=== PATIENT | female | born 1960 | race Caucasian/White ===

== ENCOUNTER → 2016-08-04 | Outpatient (CLI) | payer OTHER ==
--- NOTE | 2016-08-13 11:25 | MM ---
Reason for exam: screening (asymptomatic). Last mammogram was performed 10 years and 4 months ago. History: Family history of breast cancer in sister at age 50. Physical Findings: A clinical breast exam by your physician is recommended on an annual basis and results should be correlated with mammographic findings. MG Screening Mammo w CAD Bilateral CC and MLO view(s) were taken. Prior study comparison: May 18, 2008, mammogram, performed at [facility]. April 12, 2006, bilateral [place] screening mammogram, performed at [facility]. The breast tissue is almost entirely fat. No significant changes when compared with prior studies. ASSESSMENT: Benign, BI-RAD 2 RECOMMENDATION: Routine screening mammogram of both breasts in 1 year.
--- NOTE | 2016-09-03 13:41 | US ---
EXAMINATION TYPE: US transvaginal DATE OF EXAM: 08/04/2016 9:45 AM COMPARISON: Previous pelvic ultrasound 18 June 2016 CLINICAL HISTORY: N83.201 Rt Ov.cyst. TECHNIQUE: Transvaginal (TV) Date of LMP: post menopausal patient EXAM MEASUREMENTS: Uterus: 8.3 x 4.7 x 4.8 cm Endometrial Stripe: 0.9 cm Right Ovary: cyst in right adnexa measuring 8.6 x 8.1 x 7.6cm Left Ovary: not visualized patient of large body habitus, uterus somewhat displaced due to large cyst 1. Uterus: Anteverted, somewhat displaced with limited visualization due to large right adnexal cyst 2. Endometrium: somewhat thickened, but limited visualization 3. Right Ovary: cystic structure in right adnexa, unable to see ovarian tissue 4. Left Ovary: not visualized. 5. Bilateral Adnexa: right adnexal cyst 6. Posterior cul-de-sac: wnl IMPRESSION: Large right adnexal cyst is again seen similar dimensions. Uterus is poorly defined. Ther e are nabothian cysts present. Exam is limited.
== END | disposition home or self-care (01) ==
LOC: RADMAMWWP 09:10
PROVIDERS: ATTEND Obstetrics & Gynecology
DX: Z12.31 Encounter for screening mammogram for malignant neoplasm of breast (principal); N83.201 Unspecified ovarian cyst, right side; Z80.3 Family history of malignant neoplasm of breast
CPT/HCPCS: 76830; G0202

== ENCOUNTER 2016-08-24 10:34 | Day surgery (SDC) | payer OTHER ==
[2016-08-20 13:44] VITALS: BMI 37.3
[~2016-08-24 10:34] MED LIST: HYDROmorphone 1 MG/ML 1 ML SYRINGE IVP PRN; LACTATED RINGERS 1,000 ML IV SCH; MIDAZOLAM 2 MG/2 ML VIAL IV PRN; ONDANSETRON 4 MG/2 ML VIAL IVP ONE; Pre Op ABX Message 1 EACH MISC MISCELLANE ONE; SCOPOLAMINE 1.5MG/72HR PATCH TRANSDERM ONE
[2016-08-24 11:26] LABS: Glucose,Whole Blood 142 mg/dL (75-99)
[2016-08-24] MEDS ORDERED: PROPOFOL 10 MG/ML 20 ML VIAL IV ONE (12:11)
[2016-08-24] MEDS ORDERED: ROPIVACAINE 5 MG/ML 30 ML VIAL ONE (12:11)
[2016-08-24] MEDS ORDERED: SUCCINYLCHOLINE CHLORIDE 100 MG/5 ML SYR IV ONE (12:11)
[2016-08-24] MEDS ORDERED: LIDOCAINE 2% INJ 20 MG/ML (20 ML MDV) ONE (12:11)
[2016-08-24] MEDS ORDERED: fentaNYL (PF) 50 MCG/ML 2 ML AMP ONE (12:11)
[2016-08-24] MEDS ORDERED: LACTATED RINGERS 1,000 ML IV ONE (12:11)
[2016-08-24] MEDS ORDERED: LIDOCAINE 1% INJ 10MG/ML (20 ML MDV) ONE (12:11)
[2016-08-24 13:28] VITALS: TEMP 97.6
[2016-08-24 13:44] LABS: Glucose,Whole Blood 139 mg/dL (75-99)
[2016-08-24 14:42] VITALS: BP 109/77; PULSE 82; RESP 16
--- NOTE | 2016-08-24 22:11 | OP ---
DATE OF SERVICE: 08/24/2016 SURGEON: MISTY HOOVER DO HOTEL MAINTENANCE WORKER: Debi Dominguez PA-C PREOPERATIVE DIAGNOSES: 1. Basal joint arthritis, left thumb. 2. Left carpal tunnel syndrome. POSTOPERATIVE DIAGNOSES: 1. Basal joint arthritis, left thumb. 2. Left carpal tunnel syndrome. PROCEDURES: 1. Excision of trapezium with ligament reconstruction, tendon interposition arthroplasty using the flexor carpi radialis tendon. 2. Left carpal tunnel release. ANESTHESIA: ESTIMATED BLOOD LOSS: SPECIMENS REMOVED: COMPLICATIONS: PROCEDURE: The patient was taken to the operative suite after an axillary block was performed by the department of anesthesia in the holding area with good results. The involved arm was prepped and draped in the usual manner, elevated, exsanguinated and blood pressure tourniquet inflated to 250 mmHg. A volar incision was made over the palm of the hand using a Bravo approach. The dissection was taken through the subcutaneous tissue bluntly to identify and to preserve sensory branches. The flexor carpi radialis tendon was initially identified and kept in view throughout the remainder of the procedure. The thenar muscles were then gently dissected off of the volar capsule and reflected ulnarly and distally. Longitudinal arthrotomy was then made into the trapezial metacarpal and scaphotrapezial joints. The trapezium was dissected sharply with a little traction on the thumb and care again, given to monitoring the position of the flexor carpi radialis. The trapezium was osteotomized and removed in piecemeal fashion using rongeur. Again, the flexor carpi radialis tendon was kept intact so as not to be harmed during this portion of the procedure. A drill hole was then made into the base of the first metacarpal, beginning with an awl and enlarged using drill bits and a large curette. A similar hole was drilled on the dorsal aspect of the base of the first metacarpal perpendicular to the plane of the nail bed. Attention was then turned to harvesting the flexor carpi radialis. Approximately 8 to 10 cm proximal to the wrist, small transverse incision was made and blunt dissection was taken through the subcutaneous tissue. The flexor carpi radialis tendon was identified and released to this level. It was retracted into the wrist wound with a gentle tug. A suspension sling arthroplasty was then performed along with ligament reconstruction of the deep volar ligament using the flexor carpi radialis tendon. The edge of the tendon was secured with suture. The suture was then passed into the base of the first metacarpal and brought out through the dorsal drill hole and brought back down upon itself and abductor pollicis longus tendons. It was secured in place with 3-0 PDS suture. It was then brought back around itself, back through the abductor pollicis longus tendons, and back down upon itself again and further secured with 3-0 PDS suture. Again, in this manner reconstruction of the deep volar ligament was accomplished as well as a suspension sling arthroplasty and natural tendon spacer for the joint. Next, a longitudinal incision was made along the ring finger ray distal to the wrist crease. Dissection was taken through the skin and subcutaneous tissue, initially sharp through the skin and then blunt through the subcutaneous tissue to ensure protection of any potential terminal transverse branches of the palmar cutaneous nerve. The palmar fascia was then incised under direct vision longitudinally exposing the transverse carpal ligament. The transverse carpal ligament also was incised under direct visualization. The median nerve was then reflected free of tenosynovium to ensure no adhesions. At this point, a slight hour glass constriction was noted of the median nerve beneath the transverse carpal ligament. Both wounds were again irrigated and were closed with running and interrupted 5-0 nylon suture. A soft bulky dressing was then applied including the volar plaster splint, immobilizing the wrist in neutral position and a thumb spica splint to the IP joint, immobilizing the thumb. The patient was then taken to the recovery room in satisfactory condition.
== END 2016-08-24 15:05 | disposition home or self-care (01) ==
LOC: OR 10:34
PROVIDERS: ATTEND Orthopaedic Surgery Hand Surgery
DX: M18.9 Osteoarthritis of first carpometacarpal joint, unspecified (principal); G56.02 Carpal tunnel syndrome, left upper limb; I10 Essential (primary) hypertension; E07.9 Disorder of thyroid, unspecified; Z86.73 Personal history of transient ischemic attack (TIA), and cerebral infarction without residual deficits; Z79.84 Long term (current) use of oral hypoglycemic drugs; Z79.1 Long term (current) use of non-steroidal anti-inflammatories (NSAID); Z79.899 Other long term (current) drug therapy; Z88.2 Allergy status to sulfonamides
CPT/HCPCS: 25447; 25312; 64721; J2001 ×2; J2250; J2405; J3010; J2795; J0330; J2704

== ENCOUNTER → 2016-10-09 | Day surgery (SDC) | payer OTHER ==
[2016-10-07 14:49] VITALS: BMI 39.2
[~2016-10-09] MED LIST changes: +ALPRAZolam 0.25 MG TAB PO PRN; +ASPIRIN 325 MG TAB PO ONE; +CLONIDINE HCL 0.15 MG PO SCH; +HEPARIN SODIUM 1,000 UN/ML (10ML VL) IV ONE; +HEPARIN SODIUM 1,000 UN/ML (10ML VL) ONE; +HYDROCHLOROTHIAZIDE 25 MG TAB PO SCH; +HYDROcodone/APAP 10-325MG 1 EACH TAB PO PRN; -HYDROmorphone 1 MG/ML 1 ML SYRINGE IVP PRN; +IOHEXOL 350 MG/ML 125ML BOTTLE INJ ONE; -LACTATED RINGERS 1,000 ML IV SCH; +LIDOCAINE 2% INJ 20 MG/ML (20 ML MDV) ONE; +LIDOCAINE 2% INJ 20 MG/ML SQ ONE; +MIDAZOLAM 2 MG/2 ML VIAL IV ONE; -MIDAZOLAM 2 MG/2 ML VIAL IV PRN; +MIDAZOLAM 2 MG/2 ML VIAL ONE; +NON-FORMULARY DRUG (Metoprolol Tartrate [Lopressor] 100 MG) PO SCH; +NON-FORMULARY DRUG (Simvastatin [Zocor] 20 MG) PO SCH; -ONDANSETRON 4 MG/2 ML VIAL IVP ONE; +PANTOPRAZOLE 40 MG TABLET PO PRN; -Pre Op ABX Message 1 EACH MISC MISCELLANE ONE; +RX INFO: IV CONTRAST WAS GIVEN 1 EACH MISC MISCELLANE PRN; -SCOPOLAMINE 1.5MG/72HR PATCH TRANSDERM ONE; +SODIUM CHLORIDE 0.9% 1,000 ML IV SCH; +SODIUM CHLORIDE 0.9% 1,000 ML in EMPTY BAG 1 BAG IV ONE; +VENLAFAXINE HCL ER 150 MG CAP PO SCH; +VERAPAMIL 2.5 MG/ML 2 ML AMP ONE; +VERAPAMIL SYRINGE (5 MG/10 ML) INTRAARTER ONE; +diphenhydrAMINE 50 MG/ML 1 ML VIAL IVP ONE; +diphenhydrAMINE 50 MG/ML 1 ML VIAL ONE; +fentaNYL (PF) 50 MCG/ML 2 ML AMP IV ONE; +fentaNYL (PF) 50 MCG/ML 2 ML AMP ONE
[2016-10-09 07:04] LABS: Basophils % (A) 1 %; CH 30.7; CHCM 34.5; Eosinophils # (A) 0.1 k/uL (0-0.7); Eosinophils % (A) 1 %; HCT 39.9 % (34.0-46.0); HDW 2.77; HGB 13.8 gm/dL (11.4-16.0); Luc # (Auto) 0.21; Luc % (Auto) 3; Lymphocytes # (A) 2.4 k/uL (1.0-4.8); Lymphocytes % (A) 31 %; MCH 30.9 pg (25.0-35.0); MCHC 34.6 g/dL (31.0-37.0); MCV 89.4 fL (80.0-100.0); Mean Platelet Volume 6.5; Monocytes # (A) 0.4 k/uL (0-1.0); Monocytes % (A) 6 %; Neutrophils # (A) 4.5 k/uL (1.3-7.7); Neutrophils % (A) 59 %; RBC 4.46 m/uL (3.80-5.40); RDW 13.4 % (11.5-15.5); WBC 7.7 k/uL (3.8-10.6); WBC (Perox) 8.22
[2016-10-09 07:07] VITALS: PULSE 73; TEMP 98.1
[2016-10-09 07:21] LABS: Anion Gap 10 mmol/L; Blood Urea Nitrogen 19 mg/dL (7-17); Calcium 9.3 mg/dL (8.4-10.2); Carbon Dioxide 28 mmol/L (22-30); Chloride 103 mmol/L (98-107); Glucose 163 mg/dL (74-99); Non-African American GFR(MDRD) >60 (>60 ml/min/1.73 sqM); Potassium 3.8 mmol/L (3.5-5.1); Sodium 141 mmol/L (137-145)
[2016-10-09 09:12] VITALS: RESP 20
[2016-10-09 12:14] LABS: Glucose,Whole Blood 108 mg/dL (75-99)
--- NOTE | 2016-10-09 13:55 | CC ---
Mrs. Laird is a 56 year old female with a history of hypertension, hyperlipidemia, diabetes mellitus, and a family history of premature coronary artery disease who had frequent ventricular ectopic activity and is scheduled to undergo a surgery. She underwent myocardial perfusion imaging that revealed partial reversible anterolateral wall defect. In view of that and her risk factors, recommendation was made regarding cardiac catheterization. The procedure as well as risks and complications were discussed with the patient who is in full understanding and agreement. PROCEDURE: The patient was brought to the laboratory engineer in a fasting semi-sedated state. After receiving Fentanyl and Benadryl, achieving moderate conscious sedated state, using Xylocaine anesthesia and Seldinger technique, a 6 Czech sheath was introduced into the right radial artery . Selective right and left coronary artery was performed using 5 Czech 3.5 Bend, right and left Vijay catheter. Multiple views of the right coronary artery including hemiaxial views were obtained. Following that, the 5 Czech tight pigtail catheter was introduced into the left ventricle and a 30 degree GOODEN view of the left ventricle was obtained. . Following that, catheter and sheath were removed. Hemostasis was obtained with deployment of a TR band. There were no immediate complications. The patient was returned to her room in stable condition. Of note, the patient received 5000 units of intravenous heparin as well as intra- arterial verapamil. FINDINGS: LEFT MAIN: This is a large size vessel bifurcating into left circumflex, left anterior descending artery. Left main coronary artery has no evidence of obstructive coronary artery disease. LEFT ANTERIOR DESCENDING ARTERY: This is a large size vessel reaching towards the apex with a wrap around the apex segment giving rise to a small diagonal branch in the mid segment. The left anterior descending artery as well as branches have no evidence of obstructive coronary artery disease. LEFT CIRCUMFLEX: This is a nondominant vessel, large vessel, giving rise to two large obtuse marginal branches. The left circumflex as well as branches have no evidence of obstructive coronary artery disease. RIGHT CORONARY ARTERY: This is a large dominant vessel, giving rise to PDA and a PLV. The right coronary artery and its branches have no evidence of obstructive coronary artery disease. LEFT VENTRICULOGRAM: Left ventriculogram was performed in 30 degree JOCELYN view and received normal left ventricular size and systolic function. Ejection fraction 55%. There was no evidence of significant mitral regurgitation. HEMODYNAMICS: There was no gradient across the aortic valve. The left ventricular end diastolic pressure was 16 mmHg. CONCLUSION: 1. Normal coronary arteries. 2. Normal left ventricular size and systolic function. RECOMMENDATIONS: In view of findings and anatomy, I have recommended to continue with medical therapy with aggressive coronary risk factor modifications that have been initiated. Those findings and recommendations were discussed with the patient and her family who are in full understanding and agreement. Duration of procedure: 23 minutes. MTDD
--- NOTE | 2016-10-09 13:59 | MISC ---
Dear Dr. Ayala: I had the pleasure of performing cardiac catheterization on Mrs. Laird on the september and a full copy of procedure note will be forwarded to you. In brief, she was found to have no evidence of significant obstructive coronary artery disease with preserved left ventricular size and systolic function. Based on those findings, I see no contraindication to her upcoming surgical intervention. Thank you again for allowing me to participate in this patients care. Please feel free to call for any questions. Sincerely yours, SELENA
[2016-10-09 14:11] VITALS: BP 118/64
== END | disposition home or self-care (01) ==
LOC: CATHCVL 06:27
PROVIDERS: ATTEND Internal Medicine Interventional Cardiology
DX: Z01.810 Encounter for preprocedural cardiovascular examination (principal); R94.39 Abnormal result of other cardiovascular function study; I10 Essential (primary) hypertension; I49.3 Ventricular premature depolarization; K21.9 Gastro-esophageal reflux disease without esophagitis; E78.2 Mixed hyperlipidemia; E11.9 Type 2 diabetes mellitus without complications; Z79.84 Long term (current) use of oral hypoglycemic drugs; Z82.49 Family history of ischemic heart disease and other diseases of the circulatory system; Z79.899 Other long term (current) drug therapy; Z88.2 Allergy status to sulfonamides; Z88.8 Allergy status to other drugs, medicaments and biological substances
CPT/HCPCS: 93458; 80048; 85025; C1894; C1769; J2001; J2250; J1200; J3010; J1644; Q9967

== ENCOUNTER → 2016-12-28 | Outpatient (CLI) | payer OTHER ==
--- NOTE | 2016-12-28 10:01 | US ---
EXAMINATION TYPE: US venous doppler duplex UE RT DATE OF EXAM: 12/28/2016 COMPARISON: NONE CLINICAL HISTORY: R22.31 Localized Swelling, Mass And Lump Right Up. IV site 7 weeks ago in right for earm that is surface grinder tender and swollen SIDE PERFORMED: Right Grayscale, color doppler, spectral doppler imaging performed of the deep veins of the upper extremiti es. There is normal flow, compressibility and vascular waveforms Right Arm: Appears to be negative for DVT but superficial thrombus within basilic vein in forearm at site of patients complaint. Basilic was non compressible with no flow seen at forearm. IMPRESSION: 1. Superficial venous thrombosis within the basilic vein at the site of the patient's pain. 2. No evidence of deep venous thrombosis within the right upper extremity.
== END | disposition home or self-care (01) ==
LOC: RADUSWWP 07:23
PROVIDERS: ATTEND Family Medicine
DX: I82.811 Embolism and thrombosis of superficial veins of right lower extremity (principal)

== ENCOUNTER 2017-04-08 07:37 | Day surgery (SDC) | payer OTHER ==
[2017-04-06 13:08] VITALS: BMI 38.7
[~2017-04-08 07:37] MED LIST changes: -ALPRAZolam 0.25 MG TAB PO PRN; -ASPIRIN 325 MG TAB PO ONE; -CLONIDINE HCL 0.15 MG PO SCH; -HEPARIN SODIUM 1,000 UN/ML (10ML VL) IV ONE; -HEPARIN SODIUM 1,000 UN/ML (10ML VL) ONE; -HYDROCHLOROTHIAZIDE 25 MG TAB PO SCH; -HYDROcodone/APAP 10-325MG 1 EACH TAB PO PRN; -IOHEXOL 350 MG/ML 125ML BOTTLE INJ ONE; +LACTATED RINGERS 1,000 ML IV SCH; +LIDOCAINE 1% 20 ML VIAL (10MG/ML) FOR IV START INTRADERMA PRN; -LIDOCAINE 2% INJ 20 MG/ML (20 ML MDV) ONE; -LIDOCAINE 2% INJ 20 MG/ML SQ ONE; -MIDAZOLAM 2 MG/2 ML VIAL IV ONE; -MIDAZOLAM 2 MG/2 ML VIAL ONE; -NON-FORMULARY DRUG (Metoprolol Tartrate [Lopressor] 100 MG) PO SCH; -NON-FORMULARY DRUG (Simvastatin [Zocor] 20 MG) PO SCH; -PANTOPRAZOLE 40 MG TABLET PO PRN; -RX INFO: IV CONTRAST WAS GIVEN 1 EACH MISC MISCELLANE PRN; -SODIUM CHLORIDE 0.9% 1,000 ML IV SCH; -SODIUM CHLORIDE 0.9% 1,000 ML in EMPTY BAG 1 BAG IV ONE; -VENLAFAXINE HCL ER 150 MG CAP PO SCH; -VERAPAMIL 2.5 MG/ML 2 ML AMP ONE; -VERAPAMIL SYRINGE (5 MG/10 ML) INTRAARTER ONE; -diphenhydrAMINE 50 MG/ML 1 ML VIAL IVP ONE; -diphenhydrAMINE 50 MG/ML 1 ML VIAL ONE; -fentaNYL (PF) 50 MCG/ML 2 ML AMP IV ONE; -fentaNYL (PF) 50 MCG/ML 2 ML AMP ONE
[2017-04-08 07:58] VITALS: RESP 18; TEMP 97.1
[2017-04-08 08:03] LABS: Glucose,Whole Blood 145 mg/dL (75-99)
[2017-04-08] MEDS ORDERED: LACTATED RINGERS 1,000 ML IV ONE (08:03)
[2017-04-08] MEDS ORDERED: PROPOFOL 10 MG/ML 20 ML VIAL IV ONE (08:43)
--- NOTE | 2017-04-08 09:27 | P.PCN ---
Date of Procedure: 04/08/17 Procedure(s) Performed: Procedure: Total colonoscopy. Preoperative diagnosis: Screening for neoplasia. Postoperative diagnosis: Mild sigmoid diverticulosis with no evidence of acute diverticulitis, strictures, polyps or cancer. Preparation: HalfLytely prep. Sedation: Was provided by anesthesia. Brief clinical history: The patient is a 56-year-old female who is referred for this evaluation for screening for neoplasia. There is family history of colon cancer in her mother. The patient had a prior examination in 2010 at the time when she was having a diuretic illness with bleeding that she refers to as food poisoning. She continues to have nonspecific abdominal symptoms and intermittent diarrhea but no bleeding or other alarm symptoms. Procedure: With the patient on her left lateral decubitus position and after informed consent and adequate sedation, the perianal area was inspected and it did not show any fissures or fistulas. There were no masses felt on digital rectal examination. The Olympus CFH 190L videocolonoscope was then inserted in the rectum in the usual fashion and advanced to the cecum. The mucosa appeared healthy. No polyps or tumors were seen. There was occasional small diverticular orifice seen scattered in the distal sigmoid with no evidence of acute diverticulitis or strictures. I retroflexed the endoscope in the rectum before thew endoscope was withdrawn. The patient tolerated the procedure well. Plan: The patient was reassured. Discussed dietary measures. She will follow- up with you as planned and I recommended repeat exam in 5 years.
[2017-04-08 09:34] VITALS: BP 109/59; PULSE 64
== END 2017-04-08 10:06 | disposition home or self-care (01) ==
LOC: ORWHC2ENDO 07:37
DX: K57.30 Diverticulosis of large intestine without perforation or abscess without bleeding (principal); Z80.0 Family history of malignant neoplasm of digestive organs; K21.9 Gastro-esophageal reflux disease without esophagitis; I10 Essential (primary) hypertension; E11.9 Type 2 diabetes mellitus without complications; Z79.84 Long term (current) use of oral hypoglycemic drugs; Z79.891 Long term (current) use of opiate analgesic; Z79.899 Other long term (current) drug therapy; M19.90 Unspecified osteoarthritis, unspecified site; K58.0 Irritable bowel syndrome with diarrhea; E78.5 Hyperlipidemia, unspecified; Z88.2 Allergy status to sulfonamides; Z88.8 Allergy status to other drugs, medicaments and biological substances
CPT/HCPCS: 45378; J2704

== ENCOUNTER 2017-12-31 11:16 | Emergency (ER) | payer MEDICARE, OTHER ==
[2017-12-31 11:45] VITALS: BP 127/72; PULSE 72; RESP 18; TEMP 97.9
--- NOTE | 2017-12-31 12:28 | XR ---
EXAMINATION TYPE: XR knee complete RT DATE OF EXAM: 12/31/2017 CLINICAL HISTORY: Posttraumatic right knee pain TECHNIQUE: Three views of the right knee are obtained. COMPARISON: None. FINDINGS: There is no acute fracture/dislocation evident in right knee. The tri-compartment joint s paces appear within normal limits. The overlying soft tissue appears unremarkable. IMPRESSION: There is no acute fracture or dislocation in the right knee.
--- NOTE | 2017-12-31 12:29 | XR ---
EXAMINATION TYPE: XR ankle complete RT DATE OF EXAM: 12/31/2017 CLINICAL HISTORY: Posttraumatic right ankle pain TECHNIQUE: Frontal, lateral and oblique images of the right ankle are obtained. COMPARISON: None. FINDINGS: There is no acute fracture/dislocation evident in the right ankle. The ankle mortise appe ars within normal limits. Mild soft tissue swelling over the lateral malleolus. Moderate infracalcane al heel spur. IMPRESSION: Moderate soft tissue swelling over the lateral malleolus with no acute fracture or disloc ation in the right ankle.
--- NOTE | 2017-12-31 12:32 | ED ---
Lower Extremity Injury HPI - General Chief Complaint: Extremity Injury, Lower Stated Complaint: Fall-Ankle Pain Time Seen by Provider: 12/31/17 11:58 Source: patient Mode of arrival: ambulatory Limitations: no limitations - History of Present Illness Initial Comments: 57-year-old female past medical history of hypertension type 2 diabetes as well as repetitive right ankle's brains presented today for chief complaint right ankle pain. Patient states that 2 nights ago she was walking in her home when she stepped on a hiking boot rolling her right ankle. Patient states that she noticed a aching pain in the right ankle that increased with ambulation for the past two days. Patient denies numbness, tingling, loss sensation, coolness of the extremity, gross deformity of the ankle. Pt did admit to swelling of the right ankle and right knee pain in addition to the right ankle pain. Pt denies falling hitting her head or injury to any other extremity. Remainder of ROS (-) . Pt has been taking ibuprofen 800mg for pain mgmt, as well as icing the area. Pt presents today for persistent pain. Patient denies any recent fever, chills, shortness of breath, chest pain, back pain, abdominal pain, nausea or vomiting, numbness or tingling, dysuria or hematuria, constipation or diarrhea, headaches or visual changes, or any other complaints. - Related Data Home Medications Medication Instructions Recorded Confirmed Hydrochlorothiazide 25 mg PO DAILY 08/20/16 12/31/17 Metoprolol Tartrate [Lopressor] 100 mg PO BID 08/20/16 12/31/17 Simvastatin [Zocor] 20 mg PO HS 08/20/16 12/31/17 Venlafaxine HCl [Effexor XR] 150 mg PO QAM 08/20/16 12/31/17 cloNIDine HCL [Catapres] 0.3 mg PO BID 08/20/16 12/31/17 Ergocalciferol (Vitamin D2) 50,000 unit PO TU 12/31/17 12/31/17 [Drisdol] Ibuprofen [Motrin] 800 mg PO BID 12/31/17 12/31/17 metFORMIN HCL [Glucophage] 500 mg PO BID 12/31/17 12/31/17 Allergies Allergy/AdvReac Type Severity Reaction Status Date / Time cortisone Allergy Severe Dyspnea, Verified 12/31/17 12:50 Swelling, Red Skin prednisone Allergy Severe Rash, Verified 12/31/17 12:50 Swelling, Dyspnea, Red skin Sulfa (Sulfonamide Allergy Unknown Rash/Hives Verified 12/31/17 12:50 Antibiotics) Review of Systems ROS Statement: Those systems with pertinent positive or pertinent negative responses have been documented in the HPI. ROS Other: All systems not noted in ROS Statement are negative. Constitutional: Denies: fever, chills Eyes: Denies: eye pain ENT: Denies: ear pain, throat pain Respiratory: Denies: cough, dyspnea, wheezes, hemoptysis, stridor Cardiovascular: Denies: chest pain, palpitations Endocrine: Denies: fatigue Gastrointestinal: Denies: abdominal pain, nausea, vomiting, diarrhea, constipation Genitourinary: Denies: urgency, dysuria Musculoskeletal: Reports: joint swelling, arthralgia Skin: Denies: rash, lesions Neurological: Denies: headache, weakness, numbness, paresthesias, confusion Past Medical History Past Medical History: Diabetes Mellitus, GERD/Reflux, Hyperlipidemia, Hypertension, Osteoarthritis (OA) Additional Past Medical History / Comment(s): IBS, palpitations, irregular heartbeat,hx. fx. vertebrae-back & right hip pain,states "superficial blood clot rt arm after IV insertion " History of Any Multi-Drug Resistant Organisms: None Reported Past Surgical History: Joint Replacement, Orthopedic Surgery, Tubal Ligation Additional Past Surgical History / Comment(s): left hip replaced, elbow surg, ovarian cyst w/ rt ovary and rt fallopian tube removed,left carpel tunnel and basal jt Past Anesthesia/Blood Transfusion Reactions: No Reported Reaction Past Psychological History: Anxiety, Depression Smoking Status: Never smoker Past Alcohol Use History: None Reported Past Drug Use History: None Reported - Past Family History Mother Family Medical History: Cancer Additional Family Medical History / Comment(s): COLON CANCER Father Family Medical History: Cancer Additional Family Medical History / Comment(s): ESOPHAGEAL CANCER Sister(s) Family Medical History: Cancer Additional Family Medical History / Comment(s): BREAST CANCER General Exam - General Exam Comments Initial Comments: General: The patient is awake and alert, in no distress, and does not appear acutely ill. Eye: Pupils are equal, round and reactive to light, extra-ocular movements are intact. No nystagmus. There is normal conjunctiva bilaterally. No signs of icterus. Cardiovascular: There is a regular rate and rhythm. No murmur, rub or gallop is appreciated. Respiratory: Lungs are clear to auscultation, respirations are non-labored, breath sounds are equal. No wheezes, stridor, rales, or rhonchi. Musculoskeletal: Moderate soft tissue swelling over the lateral malleolus. Full ROM of the knees with flexion and extension. Pt complains of discomfort with all movement. No palpable step off. Extensor mechanism intact. Normal ROM at the ankles bilaterally with dorsiflexion and plantarflexion, patient complains of pain with bowel movements of the right ankle, tenderness to palpation over the right medial and lateral malleolus. Strength 5/5. Sensation intact. DP pulses equal bilaterally 2+. Compartments soft and compressible. Neurological: A&O x 3. CN II-XII intact, There are no obvious motor or sensory deficits. Coordination appears grossly intact. Speech is normal. Skin: Skin is warm and dry and no rashes or lesions are noted. Psychiatric: Cooperative, appropriate mood & affect, normal judgment. Limitations: no limitations Course Vital Signs 12/31/17 11:41 Temperature 97.9 F Pulse Rate 72 Respiratory 18 Rate Blood Pressure 127/72 O2 Sat by Pulse 98 Oximetry Medical Decision Making - Medical Decision Making X-ray negative. Patient neurovascular intact. Carotid soft and compressible. At this time given soft tissue swelling and have concern for possible ligamentous injury of the right ankle. Posterior mold with stirrups was placed. Patient was given instruction to use crutches at home and follow-up with orthopedic surgery, one to 2 days. Patient agreed plan. In addition patient was given [place] instruction. Case discussed in detail Dr. Alexander, who agreed impression and plan. Patient was discharged in stable condition. Disposition Clinical Impression: Moderate right ankle sprain, Right knee sprain, Right knee pain Disposition: HOME SELF-CARE Condition: Good Instructions: Ankle Sprain (ED), Knee Sprain (ED) Additional Instructions: Please use ibuprofen and tylenol for pain medication as discussed. Please follow-up with orthopedic surgery in the next 1-2 days. Please return to emergency room if the symptoms increase or worsen or for any other concerns. Is patient prescribed a controlled substance at d/c from ED?: No Referrals: Lala Ayala MD [Primary Care Provider] - 1-2 days Rolando Marie MD [Medical Doctor] - 1-2 days Time of Disposition: 13:00
== END 2017-12-31 13:50 | disposition home or self-care (01) ==
LOC: EC 11:16
DX: S93.401A Sprain of unspecified ligament of right ankle, initial encounter (principal); S83.91XA Sprain of unspecified site of right knee, initial encounter; E78.5 Hyperlipidemia, unspecified; I10 Essential (primary) hypertension; E11.9 Type 2 diabetes mellitus without complications; M19.90 Unspecified osteoarthritis, unspecified site; F32.9 Major depressive disorder, single episode, unspecified; F41.9 Anxiety disorder, unspecified; Z88.2 Allergy status to sulfonamides; Z88.8 Allergy status to other drugs, medicaments and biological substances; Z79.1 Long term (current) use of non-steroidal anti-inflammatories (NSAID); Z79.84 Long term (current) use of oral hypoglycemic drugs; Z79.899 Other long term (current) drug therapy; W22.09XA Striking against other stationary object, initial encounter; Y93.01 Activity, walking, marching and hiking; Y92.009 Unspecified place in unspecified non-institutional (private) residence as the place of occurrence of the external cause
CPT/HCPCS: 29515; 99283

== ENCOUNTER → 2020-11-13 | Outpatient (CLI) | payer MEDICARE, OTHER ==
--- NOTE | 2020-11-14 09:32 | MM ---
Reason for exam: screening (asymptomatic). Last mammogram was performed 4 years and 3 months ago. History: Patient is postmenopausal. Family history of breast cancer in sister at age 50. Took hormonal contraceptives for 11 years. Physical Findings: A clinical breast exam by your physician is recommended on an annual basis and results should be correlated with mammographic findings. MG 3D Screening Mammo W/Cad Bilateral CC and MLO view(s) were taken. Prior study comparison: August 04, 2016, bilateral MG screening mammo w CAD. There are scattered fibroglandular densities. There are benign appearing round calcifications in the right breast. Focal asymmetry left anterior breast CC view () and MLO view (/). ASSESSMENT: Incomplete: need additional imaging evaluation, BI-RAD 0 RECOMMENDATION: Special view mammogram of the left breast. If lesion persists on supplemental views, image directed ultrasound is recommended. [facility] will attempt to contact patient to return for supplemental views and ultrasound if indicated.
== END | disposition home or self-care (01) ==
LOC: RADMAMWWP 13:30
PROVIDERS: ATTEND Family Medicine
DX: Z12.31 Encounter for screening mammogram for malignant neoplasm of breast (principal); Z78.0 Asymptomatic menopausal state; Z80.3 Family history of malignant neoplasm of breast; Z79.3 Long term (current) use of hormonal contraceptives
CPT/HCPCS: 77063; 77067

== ENCOUNTER → 2020-11-15 | Outpatient (CLI) | payer MEDICARE, OTHER ==
--- NOTE | 2020-11-15 11:05 | MM ---
Reason for exam: additional evaluation requested from abnormal screening. Last mammogram was performed less than 1 month ago. History: Patient is postmenopausal. Family history of breast cancer in sister at age 50. Took hormonal contraceptives for 11 years. Physical Findings: Nurse Summary: 0.5cm nodule in the left breast at 12 o'clock (nurse ms). MG 3D Work Up W/Cad LT Spot compression CC, spot compression MLO, and LM view(s) were taken of the left breast. Prior study comparison: November 13, 2020, bilateral MG 3d screening mammo w/cad. August 04, 2016, bilateral MG screening mammo w CAD. The breast tissue is heterogeneously dense. This may lower the sensitivity of mammography. There is no discrete abnormality including area of concern. There is a palpable area near at 12 o'clock subareolar. Ultrasound recommended. These results were verbally communicated with the patient and result sheet given to the patient on 11/15/20. ASSESSMENT: Incomplete: need additional imaging evaluation, BI-RAD 0 RECOMMENDATION: Ultrasound of the left breast. (palpable)
--- NOTE | 2020-11-15 11:07 | USB ---
Reason for exam: additional evaluation requested from abnormal screening. History: Patient is postmenopausal. Family history of breast cancer in sister at age 50. Took hormonal contraceptives for 11 years. US Breast Workup Limited LT Left limited breast ultrasound including focal area of concern, retroareolar and axilla demonstrates no cystic or solid lesion seen. These results were verbally communicated with the patient and result sheet given to the patient on 11/15/20. ASSESSMENT: Negative, BI-RAD 1 RECOMMENDATION: Return to routine screening mammogram schedule for both breasts. Manage on a clinical basis with regard to palpable region.
== END | disposition home or self-care (01) ==
LOC: RADMAMWWP 09:12
PROVIDERS: ATTEND Family Medicine
DX: R92.2 Inconclusive mammogram (principal); Z78.0 Asymptomatic menopausal state; Z79.3 Long term (current) use of hormonal contraceptives; Z80.3 Family history of malignant neoplasm of breast
CPT/HCPCS: 77065; 76642; G0279; 77061

== ENCOUNTER → 2022-04-01 | Outpatient (CLI) | payer MEDICARE, OTHER ==
--- NOTE | 2022-04-01 12:34 | US ---
EXAMINATION TYPE: US thyroid st tissue head/neck DATE OF EXAM: 04/01/2022 COMPARISON: NONE CLINICAL HISTORY: E04.9 enlarged thyroid. Trouble swallowing GLAND SIZE: Right Lobe: 5.4 x 1.3 x 1.4 cm Overall Parenchyma: homogenous Left Lobe: 4.6 x 1.0 x 1.4 cm Overall Parenchyma: homogeneous Isthmus Thickness: .2 cm NODULES RIGHT: # of nodules measured on right: 0 LEFT: # of nodules measured on left: 0 ISTHMUS: # of nodules measured in the isthmus: 0 Bilateral neck scanned, no evidence of lymphadenopathy. No organizing fluid collection or mass. IMPRESSION: No thyroid nodules, no evidence of mass or fluid collection, no acute process.
== END | disposition home or self-care (01) ==
LOC: RADUSWWP 09:58
PROVIDERS: ATTEND Family Medicine
DX: E04.9 Nontoxic goiter, unspecified (principal)
CPT/HCPCS: 76536

== ENCOUNTER → 2022-12-23 | Outpatient (CLI) | payer MEDICARE, OTHER ==
--- NOTE | 2022-12-23 14:27 | NM ---
EXAMINATION TYPE: NM bone 3 phase DATE OF EXAM: 12/23/2022 COMPARISON: NONE CLINICAL INDICATION: Female, 62 years old with history of M25.551 PAIN IN RIGHT HIP; Triple phase bone scintigraphy was performed following the injection of 24.5 mCi Tc 99m MDP. Immedia te images and 5 hours post injection images acquired. FINDINGS: There is no significant abnormal accumulation of radiotracer to suggest metastatic disease to the bon e or other significant abnormality. 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 Mil d degenerative uptake about the right hip. Focal increased uptake in the right greater trochanter whi ch could reflect the greater trochanteric bursitis. IMPRESSION: 1. No evidence for intense uptake to suggest fracture osseous lesion. 2. Degenerative changes right hip. Correlate for greater trochanteric bursitis.
== END | disposition home or self-care (01) ==
LOC: RADNMMAIN 07:56
PROVIDERS: ATTEND Orthopaedic Surgery
DX: M16.11 Unilateral primary osteoarthritis, right hip (principal); M25.552 Pain in left hip; T84.84XA Pain due to internal orthopedic prosthetic devices, implants and grafts, initial encounter; Y79.2 Prosthetic and other implants, materials and accessory orthopedic devices associated with adverse incidents; Z96.642 Presence of left artificial hip joint
CPT/HCPCS: 78315; A9503

== ENCOUNTER → 2022-12-23 | Outpatient (CLI) | payer MEDICARE, OTHER | END | disposition home or self-care (01) | LOC: LABWHC1 08:31 | PROVIDERS: ATTEND Orthopaedic Surgery | DX: M25.552 Pain in left hip (principal); M16.11 Unilateral primary osteoarthritis, right hip; Z96.642 Presence of left artificial hip joint; T84.84XA Pain due to internal orthopedic prosthetic devices, implants and grafts, initial encounter; Y82.9 Unspecified medical devices associated with adverse incidents | CPT/HCPCS: 36415; 85379; 85652; 86140 ==